=== PATIENT | female | born 1990 | race Caucasian/White ===

== ENCOUNTER 2020-11-15 21:32 | Emergency (ER) | payer OTHER ==
[~2020-11-15 21:32] MED LIST: ATENOLOL50 MG PO; LISINOPRIL20 MG PO
[2020-11-16] MEDS ORDERED: CLEOCIN HCL150 MG PO (00:12)
[2020-11-16] MEDS ORDERED: LODINE CAP 300300 MG PO (00:12)
== END 2020-11-16 00:19 | disposition home or self-care (01) ==
LOC: ER1 21:32
DX: K04.7 Periapical abscess without sinus (principal); I10 Essential (primary) hypertension; Z88.0 Allergy status to penicillin; Z88.1 Allergy status to other antibiotic agents
CPT/HCPCS: 99282